=== PATIENT | male | born 1980 | race Two or more races ===

== ENCOUNTER 2023-08-03 13:29 | Inpatient (IN) | payer OTHER ==
[2023-08-03 14:00] VITALS: BMI 23.3
[2023-08-03] MEDS ORDERED: DICYCLOMINE HCL 10 MG CAPSULE PO PRN (14:26)
[2023-08-03] MEDS ORDERED: ONDANSETRON *ODT* 4 MG TABLET SL PRN (14:26)
[2023-08-03] MEDS ORDERED: POLYETHYLENE GLYCOL (HEALTHYLAX) 3350 17 GM PACKET PO PRN (14:26)
[2023-08-03] MEDS ORDERED: guaiFENesin 600 MG TABLET.ER (FP) PO PRN (14:26)
[2023-08-03] MEDS ORDERED: BENZOCAINE/MENTHOL (CHLORASEPTIC ) LOZENGE MM PRN (14:26)
[2023-08-03] MEDS ORDERED: BISMUTH SUBSALICYLATE 262 MG/15 ML BTL PO PRN (14:26)
[2023-08-03] MEDS ORDERED: NALOXONE HCL 0.4 MG/ML VIAL IM PRN (14:26)
[2023-08-03] MEDS ORDERED: IBUPROFEN 400 MG TABLET (FP) PO PRN (14:26)
[2023-08-03] MEDS ORDERED: NALOXONE HCL (KLOXXADO) 8 MG SPRAY NS PRN (14:26)
[2023-08-03] MEDS ORDERED: BENZONATATE 200 MG CAPSULE PO PRN (14:26)
[2023-08-03] MEDS ORDERED: MAG HYDROX/AL HYDROX/SIMETH 30 ML UNIT-DOSE CUP PO PRN (14:26)
[2023-08-03] MEDS ORDERED: ACETAMINOPHEN 325 MG TABLET (FP) PO PRN (14:26)
[2023-08-03] MEDS ORDERED: LOPERAMIDE HCL 2 MG CAPSULE PO PRN (14:26)
[2023-08-03] MEDS ORDERED: chlordiazePOXIDE HCL 25 MG CAPSULE PO PRN (14:51)
[2023-08-03] MEDS: PRENATAL VITAMINS W/ FOLIC ACID TABLET (FP) PO SCH (15:41)
[2023-08-03] MEDS: hydrOXYzine PAMOATE 25 MG CAPSULE (FP) PO PRN (17:39)
[2023-08-03] MEDS: THIAMINE 100 MG TABLET PO SCH (22:28)
[2023-08-03] MEDS: MELATONIN 5 MG TABLETS PO SCH (22:28)
[2023-08-03] MEDS: chlordiazePOXIDE HCL 25 MG CAPSULE PO SCH (22:28)
[2023-08-04 12:34] LABS: HEMATOCRIT 35.8 % (35.4-49); MCH 32.4 pg (25.7-33.7); MCHC 33.6 g/dl (32.0-35.9); MEAN CELL VOLUME 96.3 fl (80-96); MEAN PLT VOLUME 9.1 fl (7.5-11.1); PLATELET COUNT 216 10^3/uL (134-434); RBC 3.72 M/mm3 (4.00-5.60); RDW 13.8 % (11.9-15.9); WHITE BLOOD COUNT 5.4 K/mm3 (4.0-10.0)
[2023-08-04 12:53] LABS: CHLORIDE 109 mmol/L (98-107); SODIUM 139 mmol/L (136-145)
[2023-08-04 13:10] LABS: CALCIUM 8.6 mg/dL (8.5-10.1); GLUCOSE,RANDOM 100 mg/dL (74-106)
[2023-08-04 13:12] LABS: ALBUMIN 3.1 g/dl (3.4-5.0); ANION GAP 4 mmol/L (4-13); BLOOD UREA NITROGEN 13.8 mg/dL (7-18); CO2 27 mmol/L (21-32); CREATININE 0.7 mg/dL (0.55-1.3); SGOT/AST 18 U/L (15-37); SGPT/ALT 27 U/L (13-61)
[2023-08-04 13:13] LABS: BILIRUBIN,TOTAL 0.4 mg/dL (0.2-1); TOT PROT 6.3 g/dl (6.4-8.2)
[2023-08-04 13:15] LABS: ALK PHOS 74 U/L (45-117)
[2023-08-04] MEDS: OLANZapine 5 MG TABLET PO SCH (15:03)
[2023-08-04] MEDS: METHOCARBAMOL 500 MG TABLET PO PRN (17:19)
[2023-08-04] MEDS: DIVALPROEX SODIUM 500 MG TABLET E.C. PO SCH (22:37)
[2023-08-04] MEDS: OLANZapine 10 MG TABLET PO SCH (22:37)
[2023-08-04] MEDS: QUEtiapine FUMARATE 100 MG TABLET (FP) PO SCH (22:37)
[2023-08-05] MEDS: chlordiazePOXIDE HCL 25 MG CAPSULE PO SCH (05:52)
[2023-08-06] MEDS ORDERED: chlordiazePOXIDE HCL 10 MG CAPSULE PO PRN
[2023-08-06] MEDS: chlordiazePOXIDE HCL 10 MG CAPSULE PO SCH (05:37)
[2023-08-06] MEDS: MAGNESIUM HYDROX 2400MG/30ML ORAL SUSPENSION 30 ML CUP PO PRN (22:34)
[2023-08-07] MEDS: chlordiazePOXIDE HCL 10 MG CAPSULE PO SCH (06:39)
[2023-08-07] MEDS: IBUPROFEN 600 MG TABLET (FP) PO PRN (11:42)
[2023-08-08] MEDS: chlordiazePOXIDE HCL 10 MG CAPSULE PO ONE (05:46)
[2023-08-08 09:33] VITALS: BP 122/66; PULSE 82; RESP 16; TEMP 97.3
== END 2023-08-08 10:45 | disposition other institution (70) | DRG 774 ==
LOC: YASAS 13:29 → Y6N 14:44
PROVIDERS: ADMIT Allergy & Immunology; ATTEND Surgery
PROC: HZ2ZZZZ Detoxification Services for Substance Abuse Treatment (ICD-10-PCS; principal; 2023-08-03)
DX: F10.230 Alcohol dependence with withdrawal, uncomplicated (principal); F14.20 Cocaine dependence, uncomplicated; F12.20 Cannabis dependence, uncomplicated; F17.210 Nicotine dependence, cigarettes, uncomplicated; F25.0 Schizoaffective disorder, bipolar type; Z86.69 Personal history of other diseases of the nervous system and sense organs
CPT/HCPCS: 36415; 80053; 80305; 80307; 85027; 86480; 86780; 93005; 93010